=== PATIENT | male | born 1995 | race Caucasian/White ===

== ENCOUNTER 2023-02-03 09:15 | Emergency (ER) | payer OTHER ==
[2023-02-03 09:24] VITALS: BP 132/79; PULSE 82; RESP 18; TEMP 97.9; BMI 28.3
[2023-02-03] MEDS ORDERED: ONDANSETRON 4 MG/2 ML VIAL ONE (09:31)
[2023-02-03] MEDS ORDERED: SODIUM CHLORIDE 1,000 ML IV STA (09:46)
[2023-02-03] MEDS ORDERED: ONDANSETRON 4 MG/2 ML VIAL IVPUSH ONE (09:47)
[2023-02-03] MEDS ORDERED: FAMOTIDINE 20 MG/50 ML IVPB 20 MG/50 ML MG IVPB ONE ×2 (10:03→10:35)
[2023-02-03] MEDS ORDERED: MAG HYDROX/AL HYDROX/SIMETH 30 ML UNIT-DOSE CUP PO ONE (10:03)
[2023-02-03 10:05] LABS: BASO % 0.1 % (0-2.0); EOS % 0.1 % (0-4.5); HEMATOCRIT 47.2 % (35.4-49); HEMOGLOBIN 15.8 GM/dL (11.7-16.9); LYMPH % 5.9 % (8-40); MCH 27.4 pg (25.7-33.7); MCHC 33.5 g/dl (32.0-35.9); MEAN CELL VOLUME 81.6 fl (80-96); MEAN PLT VOLUME 10.2 fl (7.5-11.1); MONO % 6.5 % (3.8-10.2); NEUT % 87.4 % (42.8-82.8); PLATELET COUNT 274 10^3/uL (134-434); RBC 5.78 M/mm3 (4.00-5.60); RDW 12.6 % (11.9-15.9); WHITE BLOOD COUNT 10.3 K/mm3 (4.0-10.0)
[2023-02-03 10:25] LABS: ALBUMIN 4.6 g/dl (3.4-5.0); BLOOD UREA NITROGEN 21.1 mg/dL (7-18)
[2023-02-03] MEDS ORDERED: LACTATED RINGERS SOLUTION 1,000 ML/1,000 ML INFUS.BAG IV STA (10:28)
[2023-02-03 10:29] LABS: BILIRUBIN,TOTAL 0.9 mg/dL (0.2-1); TOT PROT 8.5 g/dl (6.4-8.2)
[2023-02-03] MEDS ORDERED: MAG HYDROX/AL HYDROX/SIMETH 30 ML UNIT-DOSE CUP ONE (10:35)
== END 2023-02-03 12:20 | disposition home or self-care (01) ==
LOC: JER 09:15
PROC: 3E033GC Introduction of Other Therapeutic Substance into Peripheral Vein, Percutaneous Approach (ICD-10-PCS; principal; 2023-02-03)
DX: R11.2 Nausea with vomiting, unspecified (principal); R19.7 Diarrhea, unspecified
CPT/HCPCS: 0241U-QW; 36415; 80053; 83690; 85025; 99284-25